=== PATIENT | male | born 1950 | race Two or more races ===

== ENCOUNTER 2019-04-03 00:22 | Emergency (ER) | payer OTHER ==
[~2019-04-03] VITALS: Ht 170.2 cm; Wt 108.9 kg
[2019-04-03] MEDS ORDERED: ONDANSETRON HCL/PF 4 MG/2 ML VIAL ONE ×2 (00:45→01:49)
[2019-04-03] MEDS ORDERED: HYDROMORPHONE 1 MG/1 ML DISP.SYRIN ONE (00:45)
[2019-04-03] MEDS ORDERED: LORAZEPAM INJ 2 MG/ML VIAL ONE (00:46)
[2019-04-03] MEDS ORDERED: IV NS 0.9% 1,000 ML BAG IV ONE (01:00)
[2019-04-03] MEDS ORDERED: ONDANSETRON HCL/PF 4 MG/2 ML VIAL IVP ONE (01:00)
[2019-04-03] MEDS ORDERED: LORAZEPAM INJ 2 MG/ML VIAL IV ONE (01:00)
[2019-04-03] MEDS ORDERED: HYDROMORPHONE INJ 2 MG/ML DISP.SYRIN IV ONE (01:00)
[2019-04-03 01:03] LABS: BASOPHILS % (AUTO) 0.7 % (0.0-2.0); EOSINOPHILS % (AUTO) 2.9 % (0.0-6.0); HEMATOCRIT 34 % (39-51); HEMOGLOBIN 11.6 g/dL (13.5-17.5); LYMPHOCYTES # (AUTO) 0.7 /CMM (0.8-4.8); LYMPHOCYTES % (AUTO) 13.3 % (20.0-44.0); MEAN CORPUSCULAR HGB CONC 34 g/dl (31.0-36.0); MEAN CORPUSCULAR VOLUME 88 fL (80-96); MONOCYTES # (AUTO) 0.7 /CMM (0.1-1.30); MONOCYTES % (AUTO) 14.5 % (2.0-12.0); NEUTROPHILS # (AUTO) 3.4 /CMM (1.8-8.9); NEUTROPHILS % (AUTO) 68.6 % (43.0-81.0); PLATELET COUNT (AUTO) 350 /CMM (150-450)
--- NOTE | 2019-04-03 01:05 | NUR ---
RASHAUN FROM [facility]. TO ER BED 11. AAOX4. BREATHING EVEN AND UNLABORED. C/O R HIP PAIN THAT IS NOT BEING RELIEVED. PT REPORTS THAT HE TAKE DILAUDID AT THE FACILITY BUT NO RELIEF. PT REPORTS THAT HE HAD A TOTAL R HIP SX ON 03/24/19. R LEG NOTED W/ SWELLING, REDNESS AND WARM TO TOUCH. PAIN IS RATED 10/10 SHOOTING TO THE KNEE. MD WAS AT BEDSIDE FOR EVAL. ORDERS RECEIVED AND NOTED Addendum: 04/05/19 at 0729 by LUCILA WITNESSED BY FRANKO CAMPOS RN
[2019-04-03 01:11] LABS: CALCIUM, SERUM 8.9 mg/dL (8.5-10.1)
--- NOTE | 2019-04-03 01:20 | NUR ---
PT NOTED WITH 2 FENTANYL PATCH PLACED ON R DELTOID HAVE A 75MCG/HR PATCH AND ON L DELTOID 50MCG/HR. REPORTED TO MD. [facility] ON HOLD PER MD TREVINO
--- NOTE | 2019-04-03 01:21 | NUR ---
Ativan 0.5mg = 0.25ml given to pt as per md order. Wasted 1.5mg = 0.75ml wasted d/t partial dose given. forgot to waste remainder dose at [facility]
[2019-04-03] MEDS ORDERED: ONDANSETRON HCL/PF 4 MG/2 ML VIAL IV ONE (02:00)
--- NOTE | 2019-04-03 02:06 | NUR ---
US AT BEDSIDE
[2019-04-03] MEDS ORDERED: METOCLOPRAMIDE HCL 10 MG/2 ML VIAL ONE (02:40)
[2019-04-03] MEDS ORDERED: METOCLOPRAMIDE HCL 10 MG/2 ML VIAL IV ONE (03:00)
--- NOTE | 2019-04-03 03:02 | NUR ---
AMBULANCE ETA 30 MINS
--- NOTE | 2019-04-03 04:00 | NUR ---
AMULANCE AT BEDSIDE FOR TRANSPORT TO [facility]. PT IS INSTABLE CONDITION FOR TRANSPORT. REPORT GIVEN TO AMBULANCE AND FACILITY.
--- NOTE | 2019-04-03 04:03 | NUR ---
Patient discharged to [facility] in stable condition. Written and verbal after care instructions given. Patient verbalizes understanding of instruction.IV removed. Catheter intact and site benign. Pressure and 4x4 applied to site. No bleeding noted.
[2019-04-03 06:04] VITALS: BP 151/88
== END 2019-04-03 06:06 | disposition home or self-care (01) ==
LOC: ER 00:22
DX: G89.18 Other acute postprocedural pain (principal); I10 Essential (primary) hypertension; F41.0 Panic disorder [episodic paroxysmal anxiety]
CPT/HCPCS: 36415; 80048; 85025; 93971; 96374; 96375; 96376; 99284; J2060; J2405 ×2; J2765; J7030; J1170

== ENCOUNTER 2019-04-07 15:03 | Emergency (ER) | payer OTHER ==
[~2019-04-07] VITALS: Ht 170.2 cm; Wt 108.9 kg
--- NOTE | 2019-04-07 15:08 | NUR ---
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 NITRO X 3 GIVEN, NO RELIEF. PATIENT A/OX4, BREATHING EVEN AND UNLABORED, C/O NAUSEA AND VOMITING. ATTACHED TO THE FAMILY RESOURCE COORDINATOR. ESTABLISHED AN IV LINE. BLOOD DRAWN DONE AND SENT TO LAB.
--- NOTE | 2019-04-07 15:11 | NUR ---
[facility]) [phone]. DAUGHTER IN LAW ADAMANT THAT PT NOT GO BACK TO [facility]
[2019-04-07] MEDS ORDERED: ONDANSETRON HCL/PF 4 MG/2 ML VIAL ONE (15:26)
--- NOTE | 2019-04-07 15:30 | NUR ---
DR SPARKS CALLED AT [facility] ER FOR STEMI TX,SPOKE WITH DR OSMAN.
--- NOTE | 2019-04-07 15:30 | NUR ---
Zofran IVP 4mg given on left wrist 20g
--- NOTE | 2019-04-07 15:30 | NUR ---
Kirstin mendes in ED - 04/07/19 at 1534 by SAM brunilda given left wrist 20g
--- NOTE | 2019-04-07 15:38 | NUR ---
PER LAB, BLOOD HEMOLYZED, ATTEMPTED TO GET ANOTHER BLOOD SAMPLE, BUT PER MD, ITS OK, PATIENT NEEDS TO BE TRANSFERRED TO ANOTHER ACUTE HOSPITAL.
--- NOTE | 2019-04-07 15:42 | NUR ---
REPORT GIVEN TO RESCUE 88. PATIENT TRANSFERRED VIA ACLS PROTOCOL. PATIENT A/OX4, BREATHING EVEN AND UNLABORED, STILL C/O NAUSEA. MEDICAL RECORDS GIVEN TO [facility].
[2019-04-07 15:45] VITALS: BP 106/60
[2019-04-07] MEDS ORDERED: ONDANSETRON HCL/PF - ER 4 MG/2 ML VIAL IV ONE (16:00)
== END 2019-04-07 15:51 | disposition short-term general hospital (02) ==
LOC: ER 15:08
DX: I20.0 Unstable angina (principal); I10 Essential (primary) hypertension; F41.0 Panic disorder [episodic paroxysmal anxiety]; Z98.890 Other specified postprocedural states
CPT/HCPCS: 96374; 99285; J2405